=== PATIENT | male | born 1965 | race Caucasian/White ===

== ENCOUNTER 2021-06-21 08:42 | Emergency (ER) | payer BC, SELFPAY ==
[2021-06-21 08:54] VITALS: BP 138/92; PULSE 70; RESP 16; TEMP 36.3; O2SAT 99
--- NOTE | 2021-06-21 09:00 | ED.GENADULT ---
HPI - General Adult General Chief complaint: Back Pain/Injury Stated complaint: lower back pain Source: patient Mode of arrival: ambulatory Limitations: no limitations History of Present Illness HPI narrative: Patient is a 56 y/o male who presents to the [facility] via POV for an evaluation of left low back pain that started 2 days ago. He reports lifting a heavy grill off of his truck and back pain began shortly after. No relief Salonpas patch. Nothing improves pain. Pain is worse with all movement. Pain radiates down back of left leg. Hx of back pain. Unable to describe quality of pain. Pain is 7-8/10. Related Data Home Medications Medication Instructions Recorded Confirmed fluticasone propionate INTRANASAL 06/21/21 Allergies Allergy/AdvReac Type Severity Reaction Status Date / Time No Known Allergies Allergy Mild Verified 06/21/21 08:58 Review of Systems Review of Systems: Pertinent negatives fever, chills, sweats, change in appetite, poor p.o. intake, malaise, headache, stiffness, spasms, abdominal pain, nausea, vomiting, diarrhea, constipation, dysuria, urinary frequency/urgency, hematuria, urinary retention, flank pain, bladder/bowel incontinence, skin color changes, deformity, numbness, tingling, loss of sensation, decreased ROM, difficulty with ambulation/coordination, chest pain, heart palpitations/murmurs, and sob. [facility] Past Medical History Medical History (Updated 06/21/21 @ 09:13 by KARSTEN Abbasi, BC) Seasonal allergic rhinitis Family History Family History Mother Family history of thyroid disease Family history of diabetes mellitus in first degree relative Father Family history of arthritis Family history of lung cancer, Onset Age: 48 Patient's father is Social History Social History Smoking status: Former smoker Smoking end date: 08/26/85 Alcohol intake: current Comments I have reviewed and agree with the patient's past medical, surgical, social, and family hx as documented by the RN. There is no relevant family history pertinent to the presenting complaint. Exam Narrative: GENERAL: Well-appearing, well-nourished, and in no acute distress. HEAD: Normocephalic, atraumatic. NECK: Supple. No lymphadenopathy or nuchal rigidity. No evidence of pain, decreased ROM, or deformity. CHEST: Lung sounds are clear to auscultation in bilateral lung raya. No respiratory distress. HEART: Regular rate and rhythm. No murmur heard. Normal peripheral pulses. ABDOMEN: Soft, nontender, nondistended, normal active bowel sounds in all quadrants. No guarding. No rebound tenderness. No pulsatile or palpable abdominal mass(es). No CVAT EXTREMITIES: Normal range of motion. No edema. BACK: Full ROM. No evidence of deformity, spasm, mass, spinal tenderness, or swelling. Right-sided SLR test positive. Slowed gait. Ambulates hunched over. Moderate left low back pain elicited with palpation and all ROM. SKIN: Warm, dry, no rash. No skin color changes. Excellent turgor. NEURO: No focal deficits. Alert and oriented x3. Course Vital Signs Vital signs: Vital Signs Temperature 97.3 F L 06/21/21 08:54 Pulse Rate 70 06/21/21 08:54 Respiratory Rate 16 06/21/21 08:54 Blood Pressure 138/92 H 06/21/21 08:54 Pulse Oximetry 99 06/21/21 08:54 Temperature 97.3 F L 06/21/21 08:54 Pulse Rate 70 06/21/21 08:54 Respiratory Rate 16 06/21/21 08:54 Blood Pressure 138/92 H 06/21/21 08:54 Pulse Oximetry 99 06/21/21 08:54 Due to an elevated blood pressure, I had a detailed discussion with the patient and/or guardian regarding the need for follow-up with their primary care provider within the next 3-4 days. Patient verbalized understanding and agreed. Medical Decision Making Differential Diagnosis Differential Diagnosis: Spinal stenosis, r
== END 2021-06-21 09:15 | disposition home or self-care (01) ==
PROVIDERS: Emergency Provider Nurse Practitioner Family
DX: M54.42 Lumbago with sciatica, left side (principal); Z87.891 Personal history of nicotine dependence
CPT/HCPCS: 99213; G0463